=== PATIENT | female | born 1985 | race Caucasian/White ===

== ENCOUNTER 2022-05-26 09:53 | Emergency (ER) | payer OTHER ==
[~2022-05-26] VITALS: Ht 165.1 cm; Wt 69.9 kg
[2022-05-26 10:00] VITALS: BP 107/68
--- NOTE | 2022-05-26 10:16 | NUR ---
37/F C/O LOWER ABDOMINAL PAIN X4 DAYS, REPORTS A POSITIVE TEST 3 DAYS AGO AT HOME. DENIES VAGINAL BLEEDING OR DISCHARGE, PATIENT IS A1. PMH: SEIZURES, HIGH RISK X 2/ VAG NKA
--- NOTE | 2022-05-26 10:23 | NUR ---
DR VALLE AT BEDSIDE.
--- NOTE | 2022-05-26 10:38 | NUR ---
ULTRASOUND AT BEDSIDE.
--- NOTE | 2022-05-26 10:45 | NUR ---
LAB AT BEDSIDE.
[2022-05-26 11:00] LABS: BASOPHILS # (AUTO) 0.1 K/uL (0.00-0.22); BASOPHILS % (AUTO) 0.5 % (0.0-2.0); EOSINOPHILS # (AUTO) 0.1 K/uL (0-0.4); EOSINOPHILS % (AUTO) 0.7 % (0.0-4.0); HEMATOCRIT 39.1 % (36-48); HEMOGLOBIN 13.1 g/dL (12.0-16.0); LYMPHOCYTES # (AUTO) 2.3 K/uL (2.5-16.5); LYMPHOCYTES % (AUTO) 18.7 % (20.5-51.1); MEAN CORPUSCULAR HEMOGLOBIN 30 pg (27-31); MEAN CORPUSCULAR HGB CONC 33 g/dL (33-37); MONOCYTES # (AUTO) 0.8 K/uL (0.8-1.0); MONOCYTES % (AUTO) 6.4 % (1.7-9.3); NEUTROPHILS # (AUTO) 8.9 K/uL (1.8-7.7); NEUTROPHILS % (AUTO) 73.7 % (42.2-75.2); PLATELET COUNT (AUTO) 212 K/uL (140-450); RED CELL DISTRIBUTION WIDTH 13.2 % (11.6-13.7); WHITE BLOOD COUNT (AUTO) 12.1 K/uL (4.8-10.8)
[2022-05-26 12:11] VITALS: BP 92/57
--- NOTE | 2022-05-26 12:12 | NUR ---
Patient discharged with v/s stable. Written and verbal after care instructions given and explained. Patient verbalized understanding. Ambulatory with steady gait. All questions addressed prior to discharge. Advised to follow up with PMD.
--- NOTE | 2022-05-26 12:13 | NUR ---
Chart checked and completed. The patient's care was reviewed and supervised by Tiffanie Manning RN.
== END 2022-05-26 12:11 | disposition home or self-care (01) ==
LOC: MED 09:53
DX: O26.891 Other specified pregnancy related conditions, first trimester (principal); R10.30 Lower abdominal pain, unspecified; O21.8 Other vomiting complicating pregnancy; Z3A.01 Less than 8 weeks gestation of pregnancy; Z86.69 Personal history of other diseases of the nervous system and sense organs
CPT/HCPCS: 36415; 76817; 81002; 81025; 84702; 85025; 99284; Q0092